=== PATIENT | female | born 1960 | race Caucasian/White ===

== ENCOUNTER 2017-06-29 09:10 | Outpatient (CLI) | payer BC | END 2017-06-29 09:11 | disposition home or self-care (01) | LOC: BICRAD 09:10 | PROVIDERS: ATTEND Internal Medicine Pulmonary Disease | DX: R05 Cough (principal); R06.00 Dyspnea, unspecified | CPT/HCPCS: 71046 ==

== ENCOUNTER 2017-08-02 10:22 | Outpatient (CLI) | payer BC ==
[2017-08-02] MEDS ORDERED: ISOVUE-370 76%-LOCM 1 ML ONE (15:00)
== END 2017-08-02 10:23 | disposition home or self-care (01) ==
LOC: BICCT 10:22
PROVIDERS: ATTEND Internal Medicine Pulmonary Disease
DX: R07.9 Chest pain, unspecified (principal); I77.810 Thoracic aortic ectasia; I25.10 Atherosclerotic heart disease of native coronary artery without angina pectoris; Q27.8 Other specified congenital malformations of peripheral vascular system
CPT/HCPCS: 71260

== ENCOUNTER 2018-03-22 15:39 | Outpatient (CLI) | payer BC | END 2018-03-22 15:40 | disposition home or self-care (01) | LOC: BICMAMMO 15:39 | PROVIDERS: ATTEND Obstetrics & Gynecology | DX: Z12.31 Encounter for screening mammogram for malignant neoplasm of breast (principal); Z80.3 Family history of malignant neoplasm of breast | CPT/HCPCS: 77063; 77067 ==

== ENCOUNTER 2018-06-01 10:11 | Day surgery (SDC) | payer BC ==
[2018-05-18 16:56] VITALS: BMI 28.3
--- NOTE | 2018-06-01 02:14 | HP ---
CHIEF COMPLAINT: Abnormal uterine bleeding, suspected postmenopausal bleeding. HISTORY OF PRESENT ILLNESS: Ms. Ena Rios is a 57-year-old, G2, P2, who presented to clinic with complaints of continued irregular bleeding. The patient has been on hormone therapy for over 10 years and has never gone more than a year without vaginal bleeding. However, due to her age and other symptoms, it was presumed that the patient is likely having postmenopausal bleeding at this point. Endometrial biopsy was attempted in clinic, however, due to cervical stenosis that was unsuccessful and the patient was counseled on recommendations and is scheduled for hysteroscopy with dilation and curettage. 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 Gynecology history, normal Pap smear and negative HPV testing. PAST MEDICAL HISTORY: History of cardiac arrhythmia, status post cardiac ablation, depression, headaches, hyperlipidemia, and hypothyroidism. SURGICAL HISTORY: Appendectomy, abdominal hernia repair, tonsillectomy, and cardiac ablation. SOCIAL HISTORY: Denies tobacco, alcohol, or drug use. MEDICATIONS: 1. Welch Thyroid 30 mg. 2. Aspirin 81 mg. 3. Estradiol patch. 4. Venlafaxine ER 75 mg. 5. VESIcare 5 mg. 6. Meloxicam 7.5 mg. REVIEW OF SYSTEMS: CONSTITUTIONAL: No constitutional symptoms. CARDIOVASCULAR: Denies cardiovascular symptoms. RESPIRATORY: Denies any respiratory symptoms. No shortness of breath. CARDIOVASCULAR: No palpitations. No chest pain. GI: Denies any nausea, vomiting, or abdominal pain. GENITOURINARY: Reports irregular abnormal bleeding. Denies any vaginal odor, itching, burning, or discharge. Denies pelvic pain. ENDOCRINE: Denies endocrine symptoms. PHYSICAL EXAMINATION: VITAL SIGNS: On her last clinic assessment, vital signs were stable. GENERAL: She is no acute distress. CARDIOVASCULAR: Regular rate. RESPIRATORY: Unlabored. ABDOMEN: Soft and nontender. EXTREMITIES: No swelling. IMAGING DATA: Transvaginal ultrasound with a 7 cm uterus with endometrial stripe approximately 6 mm, normal adnexa, and a 2.8 cm fibroid in the anterior aspect of the uterus. ASSESSMENT: Abnormal uterine bleeding, suspected postmenopausal bleeding with unsuccessful endometrial biopsy. PLAN: The patient was counseled and scheduled for hysteroscopy with dilation and curettage for evaluation of endometrial tissue. This is unable to be obtained in the clinic. The patient did receive cardiac clearance and is aware that she is to hold her aspirin 5 days prior to her procedure. Job ID: [id number]
[2018-06-01] MEDS ORDERED: Lidocaine 1% PF 5 ML VIAL ONE (10:30)
[2018-06-01] MEDS ORDERED: PROPOFOL 200 MG/20 ML VIAL ONE (10:30)
[2018-06-01] MEDS ORDERED: Dexamethasone 20 MG/5 ML VIAL ONE (10:30)
[2018-06-01] MEDS ORDERED: Ondansetron PF 4 MG/2 ML Vial ONE (10:30)
[2018-06-01] MEDS ORDERED: Ketorolac Tromethamine 30 MG/ML VIAL ONE (10:30)
[2018-06-01 11:20] LABS: Hemoglobin 15.9 g/dL (12.0-16.0); Mean Corpuscular Hemoglobin 33.3 pg (27.0-31.0); Mean Platelet Volume 7.4 fL (7.4-10.4); Platelet Count 199 thou/uL (130-400); RBC Distribution Width 11.9 % (11.5-14.5); Red Blood Cell (RBC) Count 4.77 mill/uL (4.20-5.40); White Blood Cell (WBC) Count 5.1 thou/uL (4.8-10.8)
[2018-06-01] MEDS ORDERED: Fentanyl 100 MCG/2 ML VIAL ONE (12:40)
--- NOTE | 2018-06-01 20:59 | OP ---
DATE OF PROCEDURE: 06/01/2018 PREOPERATIVE DIAGNOSIS: Postmenopausal bleeding. POSTOPERATIVE DIAGNOSES: 1. Postmenopausal bleeding. 2. Endometrial polyp. PROCEDURES PERFORMED: 1. Operative hysteroscopy with polypectomy. 2. Dilation and curettage. COMPLICATIONS: None. IV FLUIDS: 1000 mL. ESTIMATED BLOOD LOSS: 10 mL. HYSTEROSCOPIC FLUID DEFICIT: 15 mL. URINARY OUTPUT: 500 mL per straight cath prior to this procedure. FINDINGS: Normal appearing external genitalia, normal vaginal and cervical epithelium, slight cervical stenosis, 7-cm uterus with endometrial polyp which appeared benign, otherwise normal-appearing endometrial cavity. SPECIMENS: Endometrial curettings and endometrial polyp. INDICATIONS FOR PROCEDURE: Ms. Ena Rios is a 57-year-old G2, P2, who presented to the clinic with abnormal bleeding. The patient has a history of long-term use of hormone replacement therapy. An attempted endometrial biopsy was unsuccessful. Due to the patient's age, it was assumed that she likely is having postmenopausal bleeding. The patient was counseled and a hysteroscopy with D and C was recommended. DESCRIPTION OF PROCEDURE: The patient was brought to the operating room and she was placed under general anesthesia. The patient was placed in dorsal lithotomy position using Christian stirrups. She was prepped and draped in sterile fashion. An official time-out was performed. A single-sided speculum was placed in the vagina. The anterior aspect of the cervix was grasped using a single-tooth tenaculum. The cervix was sequentially dilated using René dilators. Uterus was sounded to 7 cm. The TruClear hysteroscope was then inserted into the endometrial canal. The endometrial canal was evaluated with the findings as above. The operative TruClear morcellator was then inserted and activated removing the polyp. The uterine integrity was remained during this process. The instruments were then removed. A sharp dilation and curettage were performed, and this was also collected and sent with the same pathology specimen. The tenaculum was removed. The speculum was removed. The tenaculum site was hemostatic. The patient was extubated without difficulty, and all counts were correct x2. Job ID: [id number] [facility]
== END 2018-06-01 16:00 | disposition home or self-care (01) ==
LOC: SDC 10:11
PROVIDERS: ATTEND Obstetrics & Gynecology
PROC: 0UB98ZX Excision of Uterus, Via Natural or Artificial Opening Endoscopic, Diagnostic (ICD-10-PCS; principal; 2018-06-01)
DX: N84.0 Polyp of corpus uteri (principal); F32.9 Major depressive disorder, single episode, unspecified; E78.5 Hyperlipidemia, unspecified; E03.9 Hypothyroidism, unspecified; Z79.82 Long term (current) use of aspirin; Z79.899 Other long term (current) drug therapy
CPT/HCPCS: 36415; 85027; 86850; 86900; 86901; 88305; J1100; J1885; J2001; J2405; J2704; J3010

== ENCOUNTER 2018-07-17 11:34 | Outpatient (CLI) | payer BC ==
--- NOTE | 2018-07-17 12:02 | RAD ---
Chest 2 views HISTORY: Dyspnea. COMPARISON: 06/29/2017 FINDINGS: Cardiac silhouette and pulmonary vasculature are unremarkable. Mediastinum is midline. No c onfluent airspace consolidation, pneumothorax, or pleural fluid are apparent. IMPRESSION: No active cardiopulmonary abnormalities are demonstrated.
== END 2018-07-17 11:35 | disposition home or self-care (01) ==
LOC: RAD 11:34
PROVIDERS: ATTEND Internal Medicine Pulmonary Disease
DX: R06.00 Dyspnea, unspecified (principal)
CPT/HCPCS: 71046

== ENCOUNTER 2018-08-05 13:25 | Observation (INO) | payer BC ==
[2018-08-05 13:44] LABS: #Lymphocytes 0.9 thou/uL (1.20-3.40); #Monocytes 0.6 thou/uL (0.11-0.59); #Neutrophils 9.3 thou/uL (1.40-6.50); %Basophils 0.2 % (0.0-1.0); %Eosinophils 0.4 % (0.0-10.0); %Lymphocytes 8.4 % (21.0-51.0); %Monocytes 5.1 % (0.0-10.0); %Neutrophils 85.9 % (42.0-75.0); Hemoglobin 15.8 g/dL (12.0-16.0); Mean Corpuscular Hemoglobin 34.2 pg (27.0-31.0); Mean Corpuscular Volume 97.9 fL (78.0-98.0); Mean Platelet Volume 6.9 fL (7.4-10.4); Platelet Count 228 thou/uL (130-400); Red Blood Cell (RBC) Count 4.63 mill/uL (4.20-5.40); White Blood Cell (WBC) Count 10.8 thou/uL (4.8-10.8)
[2018-08-05 13:51] LABS: PTT 24.8 SEC (22.9-36.1); Prothrombin Time 12.8 SEC (12.0-14.7)
--- NOTE | 2018-08-05 13:53 | CT ---
CT Brain WO Con: 08/05/2018 12:00 AM CLINICAL HISTORY: Facial and bilateral arm tingling with fine motor skill difficulty and slow speech therapy candidate 0800 hours this morning.. IMAGING TECHNIQUE: Multiple CT images were obtained of the brain without IV contrast. COMPARISON: None. FINDINGS: Infarct: No acute infarct evident. Hemorrhage: None. Hydrocephalus: None.. Basal cisterns: Normal. Cerebral parenchyma: Normal. Midline shift: None. Cerebellum: Normal. Brainstem: Normal. OTHER: Calvarium: Normal. Visualized Paranasal sinuses: Clear. Extracranial soft tissues:Normal IMPRESSION: 1. No acute intracranial abnormality. 2. Findings were called to Dr. Sanchez at 1:50 PM on August 05, 2018.
[2018-08-05 13:57] LABS: ALT (SGPT) 43 U/L (8-55); AST (SGOT) 31 U/L (5-34); Albumin 4.7 g/dL (3.5-5.0); Alkaline Phosphatase 79 U/L (40-150); Anion Gap 14 mmol/L (10-20); BUN (Urea Nitrogen) 13 mg/dL (9.8-20.1); CK (CPK) 61 U/L (29-168); Calc. Creatinine Clearance 0 mL/min (70-130); Calcium 9.8 mg/dL (7.8-10.44); Carbon Dioxide 30 mmol/L (22-29); Chloride 100 mmol/L (98-107); Estimated GFR-MDRD 63; Globulin 2.3 g/dL (2.4-3.5); Glucose 99 mg/dL (70-105); Potassium 3.8 mmol/L (3.5-5.1); Sodium 140 mmol/L (136-145)
--- NOTE | 2018-08-05 14:24 | RAD ---
EXAM: Chest Two Views 08/05/2018 2:21 PM HISTORY: Cough COMPARISON: July 17, 2018 FINDINGS: Heart: Normal in size and contour. Pulmonary vessels: Normal. Costophrenic angles: Clear. Lungs: No confluent pneumonia, overt edema, pleural effusion, or other acute process. Pneumothorax: None. Osseous structures:Intact. Additional findings: None. IMPRESSION: No significant acute intrathoracic disease.
[2018-08-05 15:39] LABS: Bilirubin Negative (Negative); Blood, Urine Negative (Negative); Clarity CLEAR (Clear); Glucose, Urine (Dipstick) Negative (Negative); Leukocyte Negative (Negative); Nitrite Negative (Negative); Protein, Urine (Dipstick) Negative (Neg-Trace); Specific Gravity, Urine 1.007 (1.002-1.036); Urobilinogen 0.2 mg/dL (0.2-1.0)
[2018-08-05] MEDS ORDERED: predniSONE 20 MG TAB ONE (15:43)
[2018-08-05] MEDS ORDERED: hydrALAZINE 20 MG/ML VIAL ONE (17:12)
[2018-08-05] MEDS ORDERED: Acetaminophen 325 MG TAB PO PRN (17:53)
[2018-08-05] MEDS ORDERED: Guaifenesin DM 100-10/5 ML UDCUP PO PRN (17:53)
[2018-08-05] MEDS ORDERED: Ondansetron ODT 4 MG TAB PO PRN (17:53)
[2018-08-05] MEDS ORDERED: hydrALAZINE 20 MG/ML VIAL SLOW IVP PRN (17:57)
[2018-08-05] MEDS ORDERED: Aspirin Chewable 81 MG TAB ONE (18:24)
[2018-08-05 18:43] LABS: Troponin I 0.015 ng/mL (< 0.028)
[2018-08-05 19:05] LABS: Folate (Folic Acid) 11.6 ng/mL (7.0-31.4)
[2018-08-05] MEDS: Doxycycline 100 MG CAP PO SCH (21:24)
[2018-08-05] MEDS: Trospium 20 MG TAB PO SCH (21:24)
[2018-08-05] MEDS: predniSONE 20 MG TAB PO SCH (21:25)
[2018-08-05] MEDS: Famotidine 20 MG TAB PO SCH (21:25)
[2018-08-05 22:08] VITALS: BMI 27.8
[2018-08-05] MEDS ORDERED: Losartan 25 MG TAB PO SCH (22:15)
--- NOTE | 2018-08-06 01:09 | HP ---
CHIEF COMPLAINT: Slurred speech, tingling of the tongue, and right upper extremity weakness. HISTORY OF PRESENT ILLNESS: The patient is a very pleasant 57-year-old female with past medical history significant for hypertension, hyperlipidemia, and sarcoidosis affecting the lungs, who presented to the hospital today with complaints of slurred speech and right arm weakness. The patient's symptoms initially began yesterday evening, when her 9-year-old granddaughter noticed a difference in her grandmother's speech. This morning, when the patient was speaking with her daughter over the phone, she again had some slurred speech /unintelligible speech. The patient states that she was not confused and that she knew exactly what she was trying to say. At that time, she felt like her right finger and hand would not text on her phone what she was trying to text to her daughter. The patient insisted that it was because she had not eaten, and so her daughter took her to [facility] where they were serving as hostesses, and the patient did eat lunch and did feel better. They returned home, and after having a long conversation with a family member, who is an RN, the patient did present to the ER for further workup and treatment. At her arrival, the patient was not complaining of any slurred speech or focal deficits; however, she did continue to complain of some numbness and tingling in her tongue. The ER doctor gave the patient a stroke scale of 1 for a very small droop on the right side of her mouth with smiling; however, I could not appreciate this on exam at the time of my interview. The patient reports no associated chest pain, palpitations, or headache with her symptoms. Workup on arrival was significant for elevated blood pressure at 210/110. The patient was given IV hydralazine in the emergency room, and her blood pressure has trended down to the 160s systolic. The patient states that she has noticed a high blood pressure readings on several of her doctors visits; however, antihypertensive medication has not been started. Her EKG shows normal sinus rhythm, no acute ST or T-wave changes. Lab work was largely unremarkable. The patient was recently seen by her polyethylene combiner, Dr. Marie, for a productive cough, which began back in May. He started the patient on prednisone and doxycycline this past . Otherwise, the patient has been feeling well, no other cardiac symptoms. She is to continue to stay active and do her yoga on a regular basis. CT scan of the head in the ER was negative for any acute intracranial abnormality. REVIEW OF SYSTEMS: A 12-point review of systems performed and is negative except that stated above in the HPI. ALLERGIES: NO KNOWN DRUG ALLERGIES. HOME MEDICATIONS: 1. Crestor 20 mg once daily. 2. Effexor 150 mg dose once daily. 3. VESIcare 5 mg daily. 4. Prednisone 20 mg t.i.d. 5. Singulair 10 mg daily. 6. Doxycycline 100 mg b.i.d. PAST MEDICAL HISTORY: Significant for recently diagnosed hypertension, currently under no treatment; hyperlipidemia; sarcoidosis with extensive workup including lung biopsy and extensive cardiac workup as well. The patient is followed by Dr. Elkins. 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 Rodríguez. PAST SURGICAL HISTORY: Lung biopsy as mentioned above, EP ablation. SOCIAL HISTORY: The patient is a nonsmoker. No history of alcohol or illicit drug abuse. The patient recently moved to the area from [place], and is continuing to establish care with her doctors here. Her PCP is Dr. Long. FAMILY HISTORY: Significant for coronary artery disease. PHYSICAL EXAMINATION: VITAL SIGNS: Blood pressure 173/94, pulse 77, O2 saturation 96% on room air, respirations are 16. The patient is afebrile. GENERAL: The patient is a well-appearing female, in no acute distress. HEENT: Head is atraumatic and normocephalic. Mucous membranes are moist. Eyes : Extraocular movements intact. Normal conjunctivae. ENT: Mucous membranes are moist. NECK: Trachea is midline. No JVD. No carotid bruits. CV: S1 and S2. Regular rate and rhythm. No appreciable murmurs, rubs, or gallops. RESPIRATORY: Auscultation of lungs reveal occasional rhonchi. Good fascicular breath sounds. No crackles or wheezes. GI: Abdomen is soft. Positive bowel sounds. Nontender. No masses noted. SKIN: Warm and dry. No rashes or discolorations. NEUROLOGIC: Cranial nerves 2 through 12 are intact. The patient is nonfocal. No loss of sensation or strength in her extremities bilaterally. LABORATORY DATA: White blood cell count 10.8, hemoglobin 15.8, hematocrit 45.3, platelets are 228. PT 12.8, INR 1, APTT 24.8. Sodium 140, potassium 3.8, chloride 100, creatinine 0.92. AST, ALT, alkaline phosphatase all within normal limits. Troponin negative x2. BNP 26. Urinalysis is negative. TSH is 0.672. Imaging as described in the HPI. ASSESSMENT: 1. Dysarthria/expressive aphasia along with paresthesia of the tongue and right hand weakness, consistent with transient ischemic attack. 2. Sarcoidosis with lung involvement, followed by Dr. Marie, with recent diagnosis of acute bronchitis. 3. Hypertension, currently untreated. 4. Hyperlipidemia. 5. Depression. 6. History of atrioventricular ulises reentry tachycardia, status post ablation. PLAN: We will proceed with TIA workup including echocardiogram and carotid Dopplers. We will proceed with MRI of the brain. We will start the patient on an aspirin. As far as her hypertension goes, we will start the patient on ARB. I will avoid SOLITARIO inhibitor at this time secondary to the patient's already underlying cough complaints. She will continue her Crestor. We will await findings of imaging, and continue to titrate her antihypertensive regimen. Will also order a B12 level. The care of this patient has been discussed with Dr. Johnson, who agrees with the above. Further recommendations based on hospital course. Job ID: [id number] [facility]
[2018-08-06 06:25] LABS: Cardiac Risk 2.3 (Less than 4.5)
--- NOTE | 2018-08-06 07:41 | ULT ---
US Carotid Doppler STANDARD History: [TIA] Comparison: None. Findings: Real-time grayscale, color, and spectral analysis of the extracranial carotid and vertebral arteries was performed. Antegrade flow both vertebral arteries. Moderate atherosclerotic plaque both carotid bulbs. No elevat ed peak systolic velocities within the internal carotid arteries. Impression: No hemodynamically significant stenosis.
[2018-08-06 07:42] VITALS: TEMP 97.9
[2018-08-06] MEDS: Trospium 20 MG TAB PO SCH (08:25)
[2018-08-06] MEDS: Doxycycline 100 MG CAP PO SCH (08:25)
[2018-08-06] MEDS: predniSONE 20 MG TAB PO SCH ×2 (08:26→14:49)
[2018-08-06] MEDS: Famotidine 20 MG TAB PO SCH (08:26)
[2018-08-06] MEDS ORDERED: Venlafaxine HCl XR 150 MG CAP PO SCH (09:00)
[2018-08-06] MEDS ORDERED: Aspirin 81 mg Enteric Coated Tablet PO SCH ×4 (09:00→12:30)
[2018-08-06] MEDS ORDERED: Montelukast Sodium 10 mg Tablet PO SCH (09:00)
[2018-08-06] MEDS ORDERED: Losartan 25 MG TAB PO SCH (09:00)
--- NOTE | 2018-08-06 10:55 | MRI ---
MRI Brain WO Con: 08/06/2018 10:45 AM CLINICAL HISTORY: Slurred speech, dysphagia, numbness. TECHNIQUE: Multiplanar, multisequence images were obtained of the brain. COMPARISON: CT of the brain without contrast dated August 05, 2018 FINDINGS: Extra axial spaces: Normal in size and morphology for the patient's age. Hemorrhage: None. Ventricular system: Normal in size and morphology for the patient's age. Basal cisterns: Normal. Cerebral parenchyma: There is a small focus of restricted diffusion centered within the left globus p allidus with associated T2 signal abnormality consistent with a subacute lacunar infarct. There are small foci of T2 signal abnormality involving the subcortical and periventricular white matter likely reflective of mild chronic small vessel white matter ischemic change.. Midline shift: None. Cerebellum: Normal. Brainstem: Normal. OTHER: Calvarium: Normal. Vascular system: Normal. Visualized Paranasal sinuses: There is mild mucosal thickening within the right maxillary sinus air c ells. Partial effusions involving the mastoid air cells.. Visualized Orbits: Normal. Visualized upper cervical spine: Normal. Sella and skull base: Normal. IMPRESSION: 1. Subacute lacunar infarct involving the left basal ganglia. 2. Mild chronic small vessel white matter ischemic change.
[2018-08-06] MEDS ORDERED: cloNIDine 0.1 MG TAB PO PRN (12:39)
--- NOTE | 2018-08-06 12:58 | CON ---
DATE OF CONSULTATION: 08-04-18 TELEMEDICINE CONSULTATION WITH TARIQ ELI CHIEF COMPLAINT: Acute stroke. HISTORY OF PRESENT ILLNESS: The patient reports she was sitting yesterday a.m. at breakfast while eating a burrito. Her family noted she had slurred speech and her right side of the face was droopy and her tongue felt very thick. Her arms got tingly on both side. She could not move everything. Her movement was very slow. She could make herself move and this lasted 3 hours. There was no symptoms in her legs. Did not have a headache or visual disturbance. She had mild dizziness. PREVIOUS MEDICAL HISTORY: No diabetes. History of hypertension, lately her blood pressures have been high. She has had an irregular heart rate since age 14. She had an ablation two years ago. She has mild elevation of cholesterol. She tried taking aspirin daily, but she had bruising, she then changed it to every other day. PREVIOUS SURGICAL HISTORY: Ablation surgery two years ago, lung biopsy in 2009 for sarcoidosis, appendectomy, hernia repair, one was an umbilical hernia and the second was an inguinal hernia performed in 1964 and 1981 respectively. FAMILY HISTORY: No history of CVA, but her father at 52 following a myocardial infarction. Her paternal grandfather at 42. Paternal great grandfather at 39. Her mother at 68 following complications after vein replacement surgery. Her 60 year old sister recently following an abdominal aortic aneurysm. Her brother at 55 with complications of hypertension and diabetes. She has two daughters, 35 and 29. SOCIAL HISTORY: She does not smoke. She drinks one glass of white wine per day. Occasionally, could be red wine. MEDICATIONS: Her home medications include; 1. Aspirin every other day. 2. She is also on Crestor. 3. Effexor. 4. VESIcare. 5. Prednisone. 6. Singulair. 7. Doxycycline. ALLERGIES: NO KNOWN DRUG ALLERGIES. REVIEW OF SYSTEMS: PULMONARY: Positive for cough and congestion due to sarcoidosis. CARDIOVASCULAR: Positive for irregular heart rate. Prior ablation procedure. NEUROLOGIC: Positive for weakness and also facial droop and numbness in her arms. OPHTHALMOLOGIC: Negative for visual disturbance. ENT: Negative for hearing problems or dizziness or tinnitus. DERMATOLOGIC: Positive for bruising when she takes aspirin daily. GASTROINTESTINAL: Negative for any GI symptoms such as nausea, vomiting, or diarrhea. LABORATORY DATA: Her current laboratory workup; white count 10.8, hemoglobin 15.8, hematocrit 45.3, and platelet count 228. Sodium 140, potassium 3.8, chloride 100, bicarb 30, BUN 13, creatinine 0.92, and cholesterol panel was within normal limits. Vitamin B12 of 647, folate 11.6, and TSH 0.675. Her MRI of the brain showed a subacute lacunar infarct involving the left basal ganglia and mild chronic small vessel ischemic changes in the white matter. Carotid Doppler was negative for any stenosis. Echocardiogram she is scheduled for a followup visit with Dr. Wheeler. PHYSICAL EXAMINATION: VITAL SIGNS: Blood pressure 189/107, temperature 97.9, pulse 71, and respiratory rate 16. GENERAL APPEARANCE: Well-built, well-nourished lady, who is comfortable in bed. CHEST: Left base showed pleural rub and congestion in the right bases. Upper lung areas were clear. HEART: Rate regular and S1 and S2 were heard. ABDOMEN: Soft. NEUROLOGIC: Higher intellectual functions, normal orientation to time, place, and person. Cranial nerve examination 2 through 12, pupils are 3 mm, reactive bilaterally. Normal extraocular movements. No facial asymmetry. Normal sensation of face bilaterally and tongue midline. No atrophy noted. Normal hearing bilaterally to finger rub. Normal elevation of palate. Motor examination, bulk normal. Tone normal. Strength 5/5 in upper and lower extremities bilaterally. Muscle groups tested are deltoid, biceps, triceps, wrist extension and flexion, finger extension and flexion bilaterally. Cerebellar, normal [id number] and [id number]. Sensory exam, normal touch bilaterally in upper and lower extremities. Deep tendon reflexes brisk at 2+ throughout in upper and lower extremities. IMPRESSION: The patient is a 57-year-old lady with poor family history of early due to heart disease and other complications in many family members. She works out regularly. She has noted elevated blood pressure in the last 2 to 3 months and she has a cardiac history with history of cardiac ablation for irregular heart rate performed two years ago. Her examination currently is normal and back to baseline. However, the symptoms that she had can be localized to the left basal ganglia infarct. However, she does not have any direct residual deficit at this time. Diagnosis is most consistent with acute cerebrovascular accident. RECOMMENDATIONS: I suggested she stay on aspirin 81 mg once daily. She already has an appointment with Dr. Wheeler for cardiac followup. She can see Dr. Sorenson as outpatient. Please start her on statin as well. Job ID: [id number] [id number]
--- NOTE | 2018-08-06 13:34 | PDOC.PN ---
- Subjective Encounter Start Date: 08/06/18 Encounter Start Time: 13:32 Subjective: feels well. no more speech issues or confusion -: no new symptoms.eager to go home - Objective Resuscitation Status - Order Detail: 08/05/18 17:53 Resuscitation Status Routine Co-Sign Provider: Resuscitation Status: FULL: Full Resuscitation MAR Reviewed: Yes Vital Signs & Weight: Vital Signs (12 hours) Temp Pulse Resp BP BP Pulse Ox 08/06/18 12:48 187/100 H 08/06/18 12:39 72 16 98 08/06/18 11:00 187/100 H 08/06/18 07:00 97.9 F 71 16 189/107 H 97 08/06/18 03:37 98.2 F 74 16 183/102 H 99 Weight Weight 157 lb 4.8 oz I&O: 08/05/18 08/06/18 08/07/18 06:59 06:59 06:59 Intake Total 600 Balance 600 Result Diagrams: 08/05/18 13:34 08/05/18 13:34 Additional Labs: Accuchecks 08/05/18 13:33 POC Glucose 101 Laboratory Tests 08/05/18 08/05/18 08/05/18 13:34 13:34 18:11 Troponin I Less than 0.010 0.015 Triglycerides Cholesterol LDL Cholesterol, Calc HDL Cholesterol TSH 3rd Generation 0.6752 08/06/18 05:38 Troponin I Triglycerides 67 Cholesterol 181 LDL Cholesterol, Calc 89 HDL Cholesterol 79 TSH 3rd Generation Phys Exam - Physical Examination Constitutional: NAD HEENT: PERRLA, moist MMs, sclera anicteric, TM's clear, oral pharynx no lesions , 2+ tonsils Neck: no nodes, no JVD, supple, full ROM Respiratory: no wheezing, no rales, no rhonchi, clear to auscultation bilateral Cardiovascular: RRR, no significant murmur Gastrointestinal: soft, non-tender, no distention, positive bowel sounds Neurological: non-focal, normal sensation, moves all 4 limbs Psychiatric: normal affect, A&O x 3 Dx/Plan (1) CVA (cerebral vascular accident) Code(s): I63.9 - CEREBRAL INFARCTION, UNSPECIFIED Status: Acute Qualifiers: Laterality of affected vessel: left Comment: Left basal ganglia.on ASA. increase to daily from every other day.Incrrease Crestor . Carotid Doppler negative for stenosis ECHO pending (2) Uncontrolled hypertension Code(s): I10 - ESSENTIAL (PRIMARY) HYPERTENSION Status: Acute Comment: add BB given h/o AVNRT (3) HLD (hyperlipidemia) Code(s): E78.5 - HYPERLIPIDEMIA, UNSPECIFIED Status: Chronic (4) H/O cardiac arrhythmia Code(s): Z86.79 - PERSONAL HISTORY OF OTHER DISEASES OF THE CIRCULATORY SYSTEM Status: Chronic Comment: s/p ablation in past - Plan DVT proph w/SCDs Neurology recs noted.daily ASA w statin -: DC home later if BP better -: Will need ppa teacher to r/o arrythmia to r/o that as a cause -: will set up as an Outpt because of the weekend * . Review of Systems - Review of Systems Constitutional: negative: fever, chills, sweats, weakness, malaise, other ENT: negative: Ear Pain, Ear Discharge, Nose Pain, Nose Discharge, Nose Congestion, Mouth Pain, Mouth Swelling, Throat Pain, Throat Swelling, Other Respiratory: negative: Cough, Dry, Shortness of Breath, Hemoptysis, SOB with Excertion, Pleuritic Pain, Sputum, Wheezing Cardiovascular: negative: chest pain, palpitations, orthopnea, paroxysmal nocturnal dyspnea, edema, light headedness, other Gastrointestinal: negative: Nausea, Vomiting, Abdominal Pain, Diarrhea, Constipation, Melena, Hematochezia, Other Genitourinary: negative: Dysuria, Frequency, Incontinence, Hematuria, Retention , Other Musculoskeletal: negative: Neck Pain, Shoulder Pain, Arm Pain, Back Pain, Hand Pain, Leg Pain, Foot Pain, Other Skin: negative: Rash, Lesions, Syd, Bruising, Other Neurological: negative: Weakness, Numbness, Incoordination, Change in Speech, Confusion, Seizures, Other - Medications/Allergies Allergies/Adverse Reactions: Allergies Allergy/AdvReac Type Severity Reaction Status Date / Time gluten Allergy Verified 08/06/18 07:36 lactase [From Dairy Aid] Allergy Verified 08/06/18 07:36 Medications: Current Medications Acetaminophen (Tylenol) 650 mg PO Q4H PRN PRN Reason: Headache/Fever/Mild Pain (1-3) Albuterol/Ipratropium (Duoneb) 3 ml NEB Q4H PRN PRN Reason: SOB &/or Wheezing Last Admin: 08/06/18 12:39 Dose: 3 ml Aspirin (Ecotrin) 81 mg PO DAILY [facility] Clonidine (Catapres) 0.1 mg PO Q4H PRN PRN Reason: SBP>160 Last Admin: 08/06/18 12:48 Dose: 0.1 mg Doxycycline Hyclate (Vibramycin) 100 mg PO BID [facility] Last Admin: 08/06/18 08:25 Dose: 100 mg Famotidine (Pepcid) 20 mg PO BID [facility] Last Admin: 08/06/18 08:26 Dose: 20 mg Guaifenesin/Dextromethorphan (Robitussin Dm) 15 ml PO Q4H PRN PRN Reason: Cough Hydralazine HCl (Apresoline) 10 mg SLOW IVP Q4H PRN PRN Reason: BP > 220/110 Losartan Potassium (Cozaar) 25 mg PO DAILY [facility] Last Admin: 08/06/18 08:25 Dose: 25 mg Metoprolol Succinate (Toprol Xl) 25 mg PO DAILY [facility] Last Admin: 08/06/18 08:26 Dose: 25 mg Montelukast Sodium (Singulair) 10 mg PO DAILY [facility] Last Admin: 08/06/18 08:26 Dose: 10 mg Ondansetron HCl (Zofran Odt) 4 mg PO Q6H PRN PRN Reason: Nausea/Vomiting Prednisone (Prednisone) 20 mg PO TID [facility] Last Admin: 08/06/18 08:26 Dose: 20 mg Rosuvastatin Calcium (Crestor) 40 mg PO HS [facility] Sodium Chloride (Flush - Normal Saline) 10 ml IVF PRN PRN PRN Reason: Saline Flush Last Admin: 08/05/18 21:25 Dose: 10 ml Trospium (Trospium) 20 mg PO BID [facility] Last Admin: 08/06/18 08:25 Dose: 20 mg Venlafaxine HCl (Effexor Xr) 150 mg PO DAILY [facility] Last Admin: 08/06/18 08:26 Dose: 150 mg
[2018-08-06 14:56] VITALS: BP 160/93
[2018-08-06] MEDS ORDERED: Atorvastatin Calcium 20 MG TAB PO SCH (21:00)
[2018-08-06] MEDS ORDERED: Rosuvastatin 20 MG TAB PO SCH ×2 (21:00)
--- NOTE | 2018-08-06 22:34 | DIS ---
DATE OF ADMISSION: 08/05/2018 DATE OF DISCHARGE: 08/06/2018 CONDITION: At the time of discharge, stable and improved. DISCHARGE DISPOSITION: Home. DISCHARGE DIAGNOSES: 1. Subacute left-sided basal ganglionic cerebrovascular accident. 2. Uncontrolled hypertension. 3. Dyslipidemia. 4. History of atrioventricular ulises reentry tachycardia, status post ablation by Dr. Rodríguez in the past. DISCHARGE MEDICATIONS: 1. Aspirin 81 mg daily. 2. Crestor dose is increased to 40 mg daily. 3. Toprol-XL 25 mg daily. Resume home medications as follows: 1. Prednisone 1 tablet p.o. t.i.d. 2. Doxycycline 1 tablet p.o. t.i.d. She was started on both of these by primary care physician for some upper respiratory tract infection. 1. Montelukast daily. 2. Effexor 150 mg daily. 3. VESIcare 10 mg daily. PRIMARY CARE PHYSICIAN: Dr. Cornelio Long. PRIMARY SOFTWARE TESTING SPECIALIST: Dr. Lopez. PROCEDURES DONE IN THE HOSPITAL: 1. CT scan of the brain which does not show any acute infarction or hemorrhage. 2. Carotid Doppler ultrasound which is negative for any hemodynamically significant stenosis bilaterally. 3. MRI of the brain which shows subacute lacunar infarction involving the left basal ganglia. CONSULTATIONS: In-house, Neurology Dr. Lang. HISTORY OF PRESENTING ILLNESS: Ms. Rios is a very pleasant 57-year-old female with past medical history of atrial arrhythmias status post ablation in the past as well as newly diagnosed hypertension and dyslipidemia as well as sarcoidosis, who presented to the emergency room with complaints of some slurred speech and confusion. Initial workup in the emergency room revealed elevated blood pressure of 210/110. CT scan of the brain, chest x-ray, EKG at the time of admission were unremarkable as well as lab work. She was admitted to stroke floor for further workup and CVA rule out. Please see admission history and physical dictated by dictated by MARY Holliday on 08/05/2018. HOSPITAL COURSE: The patient's hospital course was unremarkable. She was asymptomatic prior to admission and remained so. She remained hemodynamically stable. Workup showed subacute lacunar infarctions in the left basal ganglia. Neurology was consulted. She had no neurological deficits. At this time, she was taking aspirin every other day because of easy bruisability. She was advised to increase it to daily and Crestor dose was also increased from 20 to 40. She was found to be hypertensive throughout the hospitalization, so she was started on Toprol in addition to continuation of her new medication was started on admission. New prescriptions were provided to the patient. The patient is back to baseline and is eager to go home. She will take both of the blood pressure medications as instructed and follow up with primary care physician for adjustments. At this time, the patient did not have any arrhythmias on radiation monitor throughout her hospitalization. I do not suspect arrhythmia as a cause of CVA, but rather uncontrolled hypertension. However, she will go and follow up with [facility]iology [facility] tomorrow morning to set up a radiation monitor to rule out arrhythmias. She will continue daily aspirin and statin therapy for now. She was seen and examined prior to discharge. Please see hospitalist progress note from today's date for further details including [id number] interaction. Job ID: [id number]
[2018-08-07] MEDS ORDERED: Aspirin 81 mg Enteric Coated Tablet PO SCH (09:00)
== END 2018-08-06 16:12 | disposition home or self-care (01) ==
LOC: ERS 13:25 → 2SE 15:45
PROVIDERS: ADMIT Internal Medicine; ATTEND Internal Medicine
DX: I63.9 Cerebral infarction, unspecified (principal); I10 Essential (primary) hypertension; E78.5 Hyperlipidemia, unspecified; D86.0 Sarcoidosis of lung; F32.9 Major depressive disorder, single episode, unspecified; Z79.2 Long term (current) use of antibiotics; Z79.52 Long term (current) use of systemic steroids; Z79.82 Long term (current) use of aspirin; Z79.899 Other long term (current) drug therapy; Z91.018 Allergy to other foods; Z98.890 Other specified postprocedural states
CPT/HCPCS: 36415; 36416; 70450; 70551; 71046; 80053; 80061; 81003; 82550; 82607; 82746; 83880; 84443; 84484; 85025; 85610; 85730; 93005; 93306; 93880; 94640; 96374; G0378; J0360; J7512; J7620

== ENCOUNTER 2018-11-15 14:49 | Outpatient (CLI) | payer BC ==
--- NOTE | 2018-11-15 17:12 | BD ---
DEXA BONE DENSITOMETRY: (Dual energy x-ray absorptiometry) DATE: 11/15/2018 HISTORY: 57-year old white female for age-related, post-menopausal, osteoporosis screening. weight: 160 lbs height: 64 in. Age of menopause: 57 COMPARISON: None available. FINDINGS: The bone mineral density (BMD) is given in grams per square centimeter (g/cm2): LUMBAR SPINE: BMD (g/cm^2) T score Z score L1: 0.902 -0.8 0.3 L2: 1.000 -0.3 1.0 L3: 0.966 -1.1 0.2 L4: 0.998 -0.6 0.8 Total: 0.970 -0.7 0.6 HIP: BMD (g/cm^2) T score Z score Femoral neck: 0.837 -0.1 1.1 Total: 1.115 1.4 2.3 IMPRESSION: 1.) The mean bone mineral density of the lumbar spine is normal. Fracture risk is not increased. 2) The bone mineral density of the femoral neck is normal. Fracture risk is not increased.
== END 2018-11-15 14:50 | disposition home or self-care (01) ==
LOC: BICMAMMO 14:49
PROVIDERS: ATTEND Internal Medicine Rheumatology
DX: Z13.820 Encounter for screening for osteoporosis (principal); Z78.0 Asymptomatic menopausal state; M85.88 Other specified disorders of bone density and structure, other site
CPT/HCPCS: 77080

== ENCOUNTER 2018-12-08 07:40 | Outpatient (CLI) | payer BC ==
--- NOTE | 2018-12-08 11:01 | MRI ---
MRI BRAIN WITH AND WITHOUT CONTRAST: Date: 12/08/18 COMPARISON: 08/06/18. CLINICAL HISTORY: Sarcoidosis of other sites. FINDINGS: There is normal size of ventricular system. No midline shift. No acute territorial infarction or intr acranial hemorrhage. There is remote lacunar infarction present within the left sims radiata, super imposed upon mild chronic ischemic disease of the cerebral white matter. No pathologic intra-axial en hancement is identified. IMPRESSION: 1. No acute intracranial abnormality. 2. Cavitary lacunar infarction left sims radiata superimposed upon mild chronic ischemic disease o f the cerebral white matter. POS: [facility]
[2018-12-08] MEDS ORDERED: Gadobenate Dimeglumine 529 MG/1 ML (20ML VIAL) ONE (12:52)
== END 2018-12-08 07:41 | disposition home or self-care (01) ==
LOC: BICMRI 07:40
PROVIDERS: ATTEND Internal Medicine Rheumatology
DX: I63.9 Cerebral infarction, unspecified (principal); I67.82 Cerebral ischemia; R90.82 White matter disease, unspecified; Z87.09 Personal history of other diseases of the respiratory system
CPT/HCPCS: 70553; A9577

== ENCOUNTER 2019-01-04 16:23 | Outpatient (CLI) | payer BC ==
--- NOTE | 2019-01-04 17:45 | RAD ---
RIGHT HAND THREE VIEWS: 01/04/19 HISTORY: Hand pain. Bone mineralization is fairly well preserved. There are mild arthritic changes of the first carpometa carpal joint space. There is subluxation and marked degenerative changes of the DIP joint of the midd le finger. Osteophytic changes are seen of some of the other DIP joints. IMPRESSION: Mild osteoarthritic changes of the hand. POS: [facility]
--- NOTE | 2019-01-04 17:48 | RAD ---
LEFT HAND THREE VIEWS: 01/04/19 HISTORY: Joint pain. Bone mineralization appears within normal limits. There is some minimal osteoarthritic changes of the first carpometacarpal joint space. I do not see any bony erosive change that would suggest any type of inflammatory arthritis. Minimal osteoarthritic changes of the DIP joints are noted. IMPRESSION: Mild osteoarthritis. POS: [facility]
== END 2019-01-04 16:24 | disposition home or self-care (01) ==
LOC: BICRAD 16:23
PROVIDERS: ATTEND Internal Medicine Rheumatology
DX: M25.541 Pain in joints of right hand (principal); M25.542 Pain in joints of left hand; M19.041 Primary osteoarthritis, right hand; M19.042 Primary osteoarthritis, left hand

== ENCOUNTER 2020-03-03 11:47 | Outpatient (CLI) | payer BC ==
--- NOTE | 2020-03-03 12:00 | RAD ---
Exam:Left foot 3 views HISTORY: Pain COMPARISON: None FINDINGS: Uncomplicated screw involving the distal first metatarsal. No perihardware lucency. There i s evidence of previous bunionectomy. Preserved joint spaces. Lisfranc is maintained. No fracture. No radiographic abnormality with regards to the fifth digit IMPRESSION: Postsurgical changes involving the first digit. No acute radiographic abnormality. No abn ormality with regards to the fifth digit.
== END 2020-03-03 11:48 | disposition home or self-care (01) ==
LOC: BICRAD 11:47
PROVIDERS: ATTEND Family Medicine
DX: M79.672 Pain in left foot (principal); Z98.890 Other specified postprocedural states

== ENCOUNTER 2020-05-21 07:30 | Outpatient (CLI) | payer BC ==
--- NOTE | 2020-05-21 09:12 | MRI ---
EXAM: MRI left index digit without contrast PROVIDED CLINICAL HISTORY: Left index finger numbness and skin discoloration with history of fracture COMPARISON: Radiographs dated 08/03/2019 FINDINGS: The index digit extensor and flexor tendons appear intact. The MCP, PIP and DIP joint capsules appear intact. There is no index digit joint effusion evident. There is no significant tenosynovial fluid. There is transversely oriented sclerosis involving the terminal tuft compatible with the previ ously described fracture. The courses of the regional major neurovascular structures appear unremarkable. There is periarticular cystlike change demonstrated at the long digit and ring digit DI P joints, with associated joint space loss and joint effusion at the long digit DIP. IMPRESSION: 1. Healed index digit terminal tuft fracture without evidence for an acute process involving the inde x digit. 2. Periarticular cystlike change with joint space loss and joint effusion involving the long digit DI P joint. Findings could reflect an inflammatory or metabolic arthritis. Correlation with radiographs recommended.
== END 2020-05-21 07:31 | disposition home or self-care (01) ==
LOC: BICMRI 07:30
PROVIDERS: ATTEND Orthopaedic Surgery Hand Surgery
DX: S42.309 Unspecified fracture of shaft of humerus, unspecified arm (principal)

== ENCOUNTER 2020-05-30 08:13 | Outpatient (CLI) | payer BC | END 2020-05-30 08:14 | disposition home or self-care (01) | LOC: BICRAD 08:13 | PROVIDERS: ATTEND Internal Medicine Rheumatology | DX: M25.551 Pain in right hip (principal); M25.751 Osteophyte, right hip; M53.3 Sacrococcygeal disorders, not elsewhere classified; M16.12 Unilateral primary osteoarthritis, left hip | CPT/HCPCS: 72170 ==

== ENCOUNTER 2021-03-30 08:10 | Outpatient (CLI) | payer BC | END 2021-03-30 08:11 | disposition home or self-care (01) | LOC: BICMAMMO 08:10 | PROVIDERS: ATTEND Family Medicine | DX: Z12.31 Encounter for screening mammogram for malignant neoplasm of breast (principal) | CPT/HCPCS: 77063; 77067 ==

== ENCOUNTER 2022-03-16 13:32 | Outpatient (CLI) | payer BC | END 2022-03-16 13:33 | disposition home or self-care (01) | LOC: BICMAMMO 13:32 | PROVIDERS: ATTEND Internal Medicine Rheumatology | DX: M81.0 Age-related osteoporosis without current pathological fracture (principal); Z79.899 Other long term (current) drug therapy | CPT/HCPCS: 77080 ==

== ENCOUNTER 2022-07-15 07:51 | Outpatient (CLI) | payer BC | END 2022-07-15 07:52 | disposition home or self-care (01) | LOC: BICRAD 07:51 | PROVIDERS: ATTEND Internal Medicine Rheumatology | DX: D86.89 Sarcoidosis of other sites (principal); M25.541 Pain in joints of right hand; M25.542 Pain in joints of left hand; M15.4 Erosive (osteo)arthritis ==

== ENCOUNTER 2022-11-19 13:16 | Outpatient (CLI) | payer BC ==
[2022-11-19] MEDS ORDERED: Iopamidol 370 76% 100 ML VIAL ONE (14:51)
== END 2022-11-19 13:17 | disposition home or self-care (01) ==
LOC: BICCT 13:16
PROVIDERS: ATTEND Physician Assistant Medical
DX: K52.9 Noninfective gastroenteritis and colitis, unspecified (principal)
CPT/HCPCS: 74177; 82565; Q9967

== ENCOUNTER 2022-12-06 02:01 | Emergency (ER) | payer BC ==
[2022-12-06 02:36] LABS: #Eosinphils 0.2 thou/uL (0.0-0.7); #Monocytes 0.6 thou/uL (0.11-0.59); #Neutrophils 5.2 thou/uL (1.40-6.50); %Basophils 0.5 % (0.0-1.0); %Eosinophils 2.4 % (0.0-10.0); %Lymphocytes 18.6 % (21.0-51.0); %Monocytes 8.6 % (0.0-10.0); %Neutrophils 69.5 % (42.0-75.0); Hematocrit 37.9 % (36.0-47.0); Hemoglobin 13.3 g/dL (12.0-16.0); Mean Corpuscular HGB CONC 35.1 g/dL (32.0-36.0); Mean Corpuscular Hemoglobin 34.9 pg (27.0-31.0); Mean Corpuscular Volume 99.5 fl (78.0-98.0); Platelet Count 163 10x3/uL (130-400); RBC Distribution Width 12.6 % (11.5-14.5); Red Blood Cell (RBC) Count 3.81 mill/uL (4.20-5.40); White Blood Cell (WBC) Count 7.5 10x3/uL (4.8-10.8)
[2022-12-06 02:59] LABS: ALT (SGPT) 33 U/L (8-55); AST (SGOT) 31 U/L (5-34); Albumin 4.2 g/dL (3.4-4.8); Alkaline Phosphatase 70 U/L (40-110); Anion Gap 12 mmol/L (10-20); BUN (Urea Nitrogen) 9 mg/dL (9.8-20.1); Calc. Creatinine Clearance 0 mL/min (70-130); Calcium 8.9 mg/dL (7.8-10.44); Carbon Dioxide 24 mmol/L (23-31); Chloride 104 mmol/L (98-107); Estimated GFR 76; Globulin 2.2 g/dL (2.4-3.5); Glucose 95 mg/dL (80-115); Potassium 4.4 mmol/L (3.5-5.1); Protein, Total 6.4 g/dL (5.8-8.1); Sodium 136 mmol/L (136-145)
[2022-12-06] MEDS ORDERED: Morphine 4 MG/ML VIAL ONE (03:02)
[2022-12-06] MEDS ORDERED: methylPREDNISolone Sod Succ/PF 125 MG/2 ML VIAL ONE (03:02)
[2022-12-06] MEDS ORDERED: Aspirin Chewable 81 MG TAB ONE (03:02)
[2022-12-06 03:09] LABS: Troponin I Less than 0.010 ng/mL (< 0.028)
[2022-12-06] MEDS ORDERED: Iopamidol 370 76% 100 ML VIAL ONE (09:39)
== END 2022-12-06 05:03 | disposition home or self-care (01) ==
LOC: ERS 02:01
DX: J18.9 Pneumonia, unspecified organism (principal); E78.5 Hyperlipidemia, unspecified; Z79.899 Other long term (current) drug therapy
CPT/HCPCS: 36415; 71045; 71275; 80053; 83880; 84484; 85025; 93005; 96361; 96374; 96375; J2270; J2930; Q9967

== ENCOUNTER 2023-09-28 07:48 | Outpatient (CLI) | payer BC | END 2023-09-28 07:49 | disposition home or self-care (01) | LOC: BICMAMMO 07:48 | PROVIDERS: ATTEND Family Medicine | DX: Z12.31 Encounter for screening mammogram for malignant neoplasm of breast (principal) | CPT/HCPCS: 77063; 77067 ==